=== PATIENT | female | born 1955 | race Caucasian/White ===

== ENCOUNTER → 2021-03-05 | Outpatient (CLI) | payer MEDICARE | LOC: RAD 12:45 | DX: M51.26 Other intervertebral disc displacement, lumbar region (principal); M48.061 Spinal stenosis, lumbar region without neurogenic claudication; M54.16 Radiculopathy, lumbar region ==

== ENCOUNTER → 2022-08-17 | Outpatient (CLI) | payer MEDICARE | LOC: RAD 09:28 | DX: M48.061 Spinal stenosis, lumbar region without neurogenic claudication (principal); R93.89 Abnormal findings on diagnostic imaging of other specified body structures; M47.26 Other spondylosis with radiculopathy, lumbar region; Z98.890 Other specified postprocedural states | CPT/HCPCS: A9575 ==